=== PATIENT | male | born 1950 | race Caucasian/White ===

== ENCOUNTER 2020-08-18 06:07 | Observation (INO) | payer MEDICARE ==
[~2020-08-18] VITALS: Ht 180.3 cm; Wt 95.5 kg
[2020-08-18] MEDS ORDERED: SODIUM CHLORIDE 0.9% 1,000 ML IV SCH (06:30)
[2020-08-18] MEDS ORDERED: METO25TA91 PO (06:39)
[2020-08-18] MEDS ORDERED: PANT40TA6 PO (06:39)
[2020-08-18 07:16] VITALS: BP 132/81
[2020-08-18 07:23] LABS: ALANINE AMINOTRANSFERASE 23 U/L (12-78); ALBUMIN 3.7 g/dL (3.4-5.0); ANION GAP 5 mmol/L (5-15); CALCIUM 9.1 mg/dL (8.5-10.1); CHLORIDE 110 mmol/L (98-107)
[2020-08-18 07:24] LABS: BASOPHILS % (AUTO) 1 % (0-1); EOSINOPHILS % (AUTO) 2 % (1-7); INTERNATIONAL NORMALIZED RATIO 0.96 (0.93-1.1); LYMPHOCYTES % (AUTO) 28 % (22-44); MEAN CORPUSCULAR HEMOGLOBIN 32.3 pg (27.5-34.5); MEAN CORPUSCULAR HGB CONC 34.9 g/dL (33.2-36.2); MEAN PLATELET VOLUME 7.4 fL (7.4-10.4); MONOCYTES % (AUTO) 13 % (2-9); NEUTROPHILS % (AUTO) 56 % (42-75); PLATELET COUNT 206 x10^3/uL (130-400); PROTHROMBIN TIME 10.3 Seconds (9.6-11.5); RED BLOOD COUNT 4.64 x10^6/uL (4.38-5.82); RED CELL DISTRIBUTION WIDTH 13.3 % (9.4-14.8)
[2020-08-18] MEDS ORDERED: FENTANYL PF 100 MCG/2ML ONE (07:27)
[2020-08-18] MEDS ORDERED: LIDOCAINE 2%, 20ML ONE (07:27)
[2020-08-18] MEDS ORDERED: ISOPROTERENOL 0.2MG/ML, 5ML ONE (07:27)
[2020-08-18] MEDS ORDERED: ADENOSINE 6 MG/2 ML ONE (07:27)
[2020-08-18] MEDS ORDERED: MIDAZOLAM 1 MG/ML, 5ML ONE (07:27)
[2020-08-18 07:34] LABS: ALKALINE PHOSPHATASE 92 U/L (45-117); BILIRUBIN,TOTAL 0.4 mg/dL (0.2-1.0); TOTAL PROTEIN 7.3 g/dL (6.4-8.2)
[2020-08-18] MEDS ORDERED: HEPARIN 1,000 UNITS/ML, 10ML ONE (09:18)
[2020-08-18] MEDS: ASPIRIN 81 MG TABLET CHEW PO SCH (11:22)
[2020-08-18 12:25] VITALS: BP 113/74
[2020-08-18 19:02] VITALS: BP 116/73
[2020-08-19 01:48] VITALS: BP 115/70
[2020-08-19 07:30] VITALS: BP 130/77
[2020-08-19] MEDS: ASPIRIN 81 MG TABLET CHEW PO SCH (08:49)
[2020-08-19] MEDS ORDERED: PANTOPRAZOLE 40MG TABLET PO SCH (09:00)
== END 2020-08-19 11:50 | disposition home or self-care (01) ==
LOC: CACL 06:07 → INTOOBSV 10:09 → 5SO 10:09 → CACL 10:09 → 5SO 10:35
PROVIDERS: ADMIT Internal Medicine Cardiovascular Disease; ATTEND Internal Medicine Cardiovascular Disease
DX: I47.1 Supraventricular tachycardia (principal); R55 Syncope and collapse; Z79.899 Other long term (current) drug therapy
CPT/HCPCS: 36415; 71046; 80053; 84443; 85025; 85610; 85730; 93005; 93306; 93462; 93613; 93621; 93623; 93653; 93655; 93662; 99156; 99157; C1730; C1759; C1766; C1893; C1894; C2630; G0378; J1644; J2250; J3010; J3490; J0153